=== PATIENT | male | born 1995 | race Caucasian/White ===

== ENCOUNTER 2018-06-24 16:32 | Emergency (ER) | payer BC ==
[~2018-06-24] VITALS: Ht 185.4 cm; Wt 90.7 kg
[2018-06-24] MEDS ORDERED: BUPR300T52 PO (16:38)
[2018-06-24 16:53] LABS: BASOPHILS # (AUTO) 0.1 K/uL (0.0-8.0); EOSINOPHILS # (AUTO) 0.1 K/uL (0.0-0.7); EOSINOPHILS % (AUTO) 1.5 % (0.0-7.0); HEMATOCRIT 42.7 % (36.7-47.1); HEMOGLOBIN 14.5 g/dL (12.5-16.3); LYMPHOCYTES # (AUTO) 1.8 K/uL (20.0-40.0); LYMPHOCYTES % (AUTO) 26.1 % (20.5-51.5); MEAN CORPUSCULAR HEMOGLOBIN 31.2 uug (23.8-33.4); MEAN CORPUSCULAR HGB CONC 34 g/dL (32.5-36.3); MEAN CORPUSCULAR VOLUME 91.8 fL (73.0-96.2); MONOCYTES # (AUTO) 0.5 K/uL (2.0-10.0); MONOCYTES % (AUTO) 7.7 % (0.0-11.0); NEUTROPHILS # (AUTO) 4.3 K/uL (1.8-8.9); NEUTROPHILS % (AUTO) 63.7 % (38.5-71.5); PLATELET COUNT (AUTO) 244 K/uL (152-348); RED BLOOD CELL COUNT(AUTO) 4.65 MIL/uL (4.06-5.63); WHITE BLOOD COUNT (AUTO) 6.7 K/uL (3.6-10.2)
[2018-06-24 17:02] LABS: CARBON DIOXIDE 30 mmol/L (21-32); CHLORIDE 104 mmol/L (98-107); CREATININE 1.1 mg/dL (0.6-1.3); GLUCOSE 88 mg/dL (74-106); POTASSIUM 3.8 mmol/L (3.5-5.1); UREA NITROGEN, BLOOD 14 mg/dL (7-18)
[2018-06-24 17:09] LABS: ETHANOL < 3 MG/DL (0-0)
[2018-06-24 17:13] LABS: ALANINE AMINOTRANSFERASE 35 U/L (16-63); ALKALINE PHOSPHATASE 75 U/L (50-136); ASPARTATE AMINOTRANSFERASE 19 U/L (15-37); BILIRUBIN,DIRECT 0.1 mg/dL (0.0-0.2); BILIRUBIN,TOTAL 0.6 mg/dL (0.2-1.0)
[2018-06-24 17:19] LABS: *AMPHETAMINE, URINE NEGATIVE (NEGATIVE); *BARBITURATE, URINE NEGATIVE (NEGATIVE); *CANNABINOID, URINE POSITIVE (NEGATIVE); *COCCAINE, URINE NEGATIVE (NEGATIVE); *OPIATE, URINE NEGATIVE (NEGATIVE); *PHENCYCLIDINE SCREEN,URINE NEGATIVE (NEGATIVE)
--- NOTE | 2018-06-24 17:30 | NUR ---
PT MEDICALLY CLEARD. CALLED CHUCKIE MORRIS FOR PSYCH EVAL.
--- NOTE | 2018-06-24 19:04 | NUR ---
ASSUMED CARE OF PATIENT. PATIENT AWAITING EVALUATION BY CHUCKIE MORRIS LCSW. PATIENT REMAINS IN BED, DIRECT OBSERVATION ONGOING. 1:1 SITTER AT BEDSIDE AT ALL TIMES. BELONGINGS INVENTORY COMPLETE AND ALL BELONGINGS REMAIN AWAY FROM PATIENT REACH. ROOM SAFETY ASSESSED, NO RISKS NOTED. PATIENT DENIES HI/AH/VH. PATIENT IS CURRENTLY ENDORSING SI + PLAN. PATIENT STATES HE WANTS TO DRIVE HIS CAR OFF [place] [address] ON THE [facility]. WILL CONTINUE TO MONITOR PATIENT. NO S/S OF ELOPEMENT RISK AT THIS TIME..
--- NOTE | 2018-06-24 19:32 | NUR ---
Patient remains in bed, no acute distress noted. VSS. All patient need attended and met. Call light is within reach.
--- NOTE | 2018-06-24 19:59 | NUR ---
Spoke to Israel Aburto ([facility]), he will be arriving shortly for patient evaluation.
--- NOTE | 2018-06-24 20:05 | NUR ---
Israel Aburto has arrived for patient psych evaluation.
--- NOTE | 2018-06-24 20:55 | NUR ---
Patient to be admitted as Voluntary admission to another psych facility. Awaiting call back from [facility] regarding possible placement.
--- NOTE | 2018-06-24 21:40 | NUR ---
Patient awaiting placement at this time for [facility]
--- NOTE | 2018-06-24 22:14 | NUR ---
Spoke to [facility] psych intake, pending call back from Psych MD for MD to MD report. Awaiting approval /bed assignment at this time.
--- NOTE | 2018-06-24 22:26 | NUR ---
Spoke to [facility], no beds available in psych at this time. The non food receiving clerk has found a bed in [facility] for this patient and will contact us with updates.
--- NOTE | 2018-06-24 22:56 | NUR ---
Patient back from CT at this time. No acute distress noted. VSS
--- NOTE | 2018-06-24 23:21 | NUR ---
Patient remains in bed, sitter at bedside. no acute distress noted. VSS. Patient awaiting update regarding placement.
[2018-06-24] MEDS ORDERED: ALPRAZOLAM 0.25 MG TABLET ONE (23:58)
[2018-06-24] MEDS: ALPRAZOLAM 0.25 MG TABLET PO ONE (23:59)
--- NOTE | 2018-06-25 01:07 | NUR ---
Sitter remains at bedside, patient in bed, no acute distress noted. VSS. All patient needs attended and met. Will continue to monitor patient.
--- NOTE | 2018-06-25 01:20 | NUR ---
Spoke to ER MD, patient is not holdable at this time but is a concern for future suicide attempts. patient is to remain in ER until morning time when placement will be reattempted. No update from [facility] at this time.
--- NOTE | 2018-06-25 02:56 | NUR ---
Patient remains in bed, no acute distress noted. VSS. All patient needs attended and met. Direct observation ongoing. Sitter at bedside.
--- NOTE | 2018-06-25 04:13 | NUR ---
Patient in bed, no acute distress noted. Patient continues to endorse SI at this time. Pending placement for voluntary psych admission.
--- NOTE | 2018-06-25 05:18 | NUR ---
Israel Aburto LCSW at bedside, patients file faxed to [facility] for possible voluntary psych placement. Patient awaiting placement at this time. no acute distress noted. Sitter at bedside.
--- NOTE | 2018-06-25 06:13 | NUR ---
Spoke with dermatology sales representative from [facility], patient may be accepted to this facility. Call back pending with update on patient approval status. Patient currently in bed with no acute distress. VSS
--- NOTE | 2018-06-25 07:08 | NUR ---
Spoke to Óscar Parra at [facility]. Patient is accepted under a voluntary admission for SI. Patient is to arrive to the "I" building and enter Intake in order to be placed in a bed. Address: [facility] Stephania Cunningham [facility]. [place], [address] [facility] is to arrange transport for this issue, aids social worker to be consulted upon arrival for assistance regarding transport.
--- NOTE | 2018-06-25 07:16 | NUR ---
Report given to Gabriel ARRIAGA
--- NOTE | 2018-06-25 07:55 | NUR ---
pt is in room #2a under direct supervision of zoe Rios. no s/s of distress at this time.
--- NOTE | 2018-06-25 08:17 | NUR ---
pt left hospital er by i. pt was d/c'd after dr Petty evaluation. no s/s of acute distress at the time of discharge.
[2018-06-25 08:18] VITALS: BP 136/75
== END 2018-06-25 08:19 | disposition home or self-care (01) ==
LOC: ER 16:35
DX: F32.9 Major depressive disorder, single episode, unspecified (principal); F17.200 Nicotine dependence, unspecified, uncomplicated; F12.10 Cannabis abuse, uncomplicated
CPT/HCPCS: 36415; 80307; 85025; A4663; G0480